=== PATIENT | female | born 1995 | race Caucasian/White ===

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

== ENCOUNTER → 2018-04-24 | Outpatient (CLI) | payer BC ==
--- NOTE | 2018-04-24 08:25 | CT ---
EXAMINATION TYPE: CT sinus wo con DATE OF EXAM: 04/24/2018 COMPARISON: NONE HISTORY: Chronic Sinusitis per order. Headaches, congestion, and sinus drainage per water. CT DLP: 613 mGycm. Automated Exposure Control for Dose Reduction was Utilized. TECHNIQUE: CT scan of the sinuses is performed without contrast, axial images are obtained, coronal r eformatted images are also reviewed. FINDINGS: There is hypoplastic or nonformed left frontal sinus. Remainder paranasal sinuses are clear without suspicious opacification or air-fluid levels. The ostiomeatal complex is patent bilaterally on the coronal images. Visualized portion of mastoid air cells show no abnormal opacification. The globes are intact bilate rally. Visualized portion of brain parenchyma is unremarkable. IMPRESSION: The sinuses are clear and the ostiomeatal complex is patent bilaterally.
== END | disposition home or self-care (01) ==
LOC: RADCTMAIN 07:24
PROVIDERS: ATTEND Nurse Practitioner Family
DX: J32.9 Chronic sinusitis, unspecified (principal)
CPT/HCPCS: 70486

== ENCOUNTER 2020-11-15 20:11 | Emergency (ER) | payer BC, OTHER ==
[2020-11-15 20:25] VITALS: RESP 16; TEMP 98.3
--- NOTE | 2020-11-15 20:46 | ED ---
Headache HPI - General Chief Complaint: Headache Stated Complaint: Head injury Time Seen by Provider: 11/15/20 20:29 Mode of arrival: ambulatory - History of Present Illness Initial Comments: 25-year-old female patient presents the emergency department today for evaluation of headache and nausea after head injury. Patient states around 6:30 PM she struck her forehead on the edge of her trash can. States that she has had significant headache since. States she did take tylenol without relief. She reports some nausea and light sensitivity. Denies blurred or double vision. Denies any neck or back pain. Denies any other injuries. Patient denies any neck pain, back pain, chest pain, shortness of breath, dizziness, weakness, abdominal pain, nausea, vomiting, or difficulties with bowel movements or urination. - Related Data Home Medications Medication Instructions Recorded Confirmed Norgestimate-Ethinyl Estradiol 1 tab PO DAILY 10/16/15 10/16/15 [Liu-Hd-Fvtcuisd Tablet] Previous Rx's Medication Instructions Recorded Tobramycin 0.3% Ophth Soln [Tobrex 1 - 2 drop RIGHT EYE Q4H #1 bottle 10/16/15 0.3% Ophth Soln] Allergies Allergy/AdvReac Type Severity Reaction Status Date / Time No Known Allergies Allergy Verified 10/16/15 07:27 Review of Systems ROS Statement: Those systems with pertinent positive or pertinent negative responses have been documented in the HPI. ROS Other: All systems not noted in ROS Statement are negative. Past Medical History Past Medical History: No Reported History History of Any Multi-Drug Resistant Organisms: None Reported Past Surgical History: Adenoidectomy, Tonsillectomy Past Psychological History: No Psychological Hx Reported Past Alcohol Use History: None Reported Past Drug Use History: None Reported General Exam General appearance: alert, in no apparent distress, other (This is a well- developed, well-nourished adult female patient in no acute distress. Vital signs upon presentation temperature 98.3F, pulse 92, respiration 16, blood pressure 157/102, pulse ox 100% on room air.) Eye exam: Present: normal appearance, PERRL, EOMI. Absent: scleral icterus, conjunctival injection, nystagmus, periorbital swelling ENT exam: Present: normal exam, normal oropharynx, mucous membranes moist Respiratory exam: Present: normal lung sounds bilaterally. Absent: respiratory distress, wheezes, rales, rhonchi, stridor Cardiovascular Exam: Present: regular rate, normal rhythm, normal heart sounds. Absent: systolic murmur, diastolic murmur, rubs, gallop, clicks GI/Abdominal exam: Present: soft, normal bowel sounds. Absent: distended, tenderness, guarding, rebound, rigid Neurological exam: Present: alert, oriented X3, CN II-XII intact Expanded Speech: Present: fluid speech Cranial nerves: EOM's Intact: Normal, Nystagmus: Normal Motor strength exam: RUE: 5, LUE: 5, RLE: 5, LLE: 5 Eye Response: (4) open spontaneously Motor Response: (6) obeys commands Verbal Response: (5) oriented [place] Total: 15 Psychiatric exam: Present: normal affect, normal mood Skin exam: Present: warm, dry, intact, normal color. Absent: rash Course Vital Signs 11/15/20 11/15/20 20:22 22:39 Temperature 98.3 F Pulse Rate 92 72 Respiratory 16 16 Rate Blood Pressure 157/102 122/72 O2 Sat by Pulse 100 99 Oximetry Medical Decision Making - Medical Decision Making 25-year-old male patient presented to the emergency department today for evaluation after sustaining a head injury. Physical examination did reveal some mild soft tissue swelling to the left forehead. She is neurologically intact deficits. CT brain was negative. We did discuss possibility of concussion. She'll be discharged follow up with her primary care physician for recheck in 1- 2 days. Return parameters were discussed in detail. She verbalizes understanding and agrees with this plan. My attending is Dr. White. - Radiology Data Radiology results: report reviewed, image reviewed CT brain without contrast was obtained. Report was reviewed in its entirety. Impression by Dr. Landa shows negative unenhanced head CT scan. Disposition Clinical Impression: Concussion Disposition: HOME SELF-CARE Condition: Good Instructions (If sedation given, give patient instructions): Concussion (ED) Additional Instructions: Rest. Take Tylenol Motrin for pain control. Consider adding a Benadryl at the medicine doesn't work comments on. Follow-up the primary care physician for recheck in 1-2 days. Return for any new, worsening, or concerning symptoms. Is patient prescribed a controlled substance at d/c from ED?: No Referrals: None,Stated [Primary Care Provider] - 1-2 days Time of Disposition: 22:32
--- NOTE | 2020-11-15 22:30 | CT ---
EXAMINATION TYPE: CT brain wo con DATE OF EXAM: 11/15/2020 COMPARISON: None HISTORY: head injury, headaches CT DLP: 106.4 mGycm Automated exposure control for dose reduction was used. Ventricles have normal size. There is no mass effect nor midline shift. There is no sign of intracran ial hemorrhage. Calvarium is intact. There is normal aeration of the mastoid sinuses. Skull base is i ntact. IMPRESSION: Negative unenhanced head CT scan.
[2020-11-15] MEDS ORDERED: KETOROLAC 15 MG/ML 1 ML VIAL IM STA (22:31)
[2020-11-15 22:41] VITALS: BP 122/72; PULSE 72
== END 2020-11-15 22:40 | disposition home or self-care (01) ==
LOC: EC 20:11
DX: S06.0X9A Concussion with loss of consciousness of unspecified duration, initial encounter (principal); W26.8XXA Contact with other sharp object(s), not elsewhere classified, initial encounter
CPT/HCPCS: 99283; 70450; 96372; J1885

== ENCOUNTER → 2021-08-29 | Outpatient (CLI) | payer BC ==
--- NOTE | 2021-08-30 05:09 | MR ---
EXAMINATION TYPE: MR hand RT wo con DATE OF EXAM: 08/29/2021 COMPARISON: None HISTORY: Right wrist pain S/P fall. Multiplanar multiecho imaging of the right hand performed with no contrast. The metacarpals are intact. Fingers appear intact. Intercarpal joint spaces are normal. No evidence of bone edema. The radiocarpal joint is anatomic. No fracture line seen. No evidence of a soft tissue mass. The flexor and extensor tendons of the hand a ppear intact. No pathologic fluid collection. IMPRESSION: Negative MR scan of the right wrist. No fracture
== END | disposition home or self-care (01) ==
LOC: RADMRIMAIN 17:56
PROVIDERS: ATTEND Family Medicine
DX: M25.531 Pain in right wrist (principal)